=== PATIENT | female | born 1975 | race Caucasian/White ===

== ENCOUNTER 2020-08-25 21:36 | Emergency (ER) | payer OTHER ==
[~2020-08-25] VITALS: Ht 160 cm; Wt 104.3 kg
[2020-08-25 21:39] VITALS: Ht 160 cm; Wt 104.3 kg
[2020-08-25] MEDS ORDERED: CAPTOPRIL12.5 MG PO (22:44)
[2020-08-25 22:45] VITALS: BP 135/66
== END 2020-08-25 22:45 | disposition home or self-care (01) ==
LOC: ED 21:36
DX: R07.89 Other chest pain (principal); I10 Essential (primary) hypertension